=== PATIENT | female | born 1960 | race African-American/Black ===

== ENCOUNTER 2022-05-14 08:41 | Day surgery (SDC) | payer OTHER ==
[~2022-05-14] VITALS: Ht 157.5 cm; Wt 95.3 kg
[2022-05-14] MEDS ORDERED: OXYBUTYNIN CHLOR5 M1 PO (09:13)
[2022-05-14] MEDS ORDERED: BUSPAR5 M1 PO (09:14)
[2022-05-14] MEDS ORDERED: CYMBALTA20 MG PO (09:16)
[2022-05-14] MEDS ORDERED: DICLOFENAC SODI TOP (09:16)
[2022-05-14] MEDS ORDERED: ZOLPIDEM5 M1 PO (09:17)
[2022-05-14] MEDS ORDERED: FENOFIBRATE40 MG PO (09:17)
[2022-05-14] MEDS ORDERED: ATORVASTATIN CA10 MG PO (09:18)
[2022-05-14] MEDS ORDERED: METFORMIN500 M2 PO (09:19)
[2022-05-14] MEDS ORDERED: GLIMEPIRIDE2 MG PO (09:19)
[2022-05-14] MEDS ORDERED: PERCOCET 5/321 COMBO PO (09:21)
[2022-05-14] MEDS ORDERED: MELATONIN5 M3 PO (09:22)
[2022-05-14 11:19] VITALS: BP 168/95
== END 2022-05-14 11:00 | disposition home or self-care (01) ==
LOC: ORM 08:41
PROVIDERS: ATTEND Physical Medicine & Rehabilitation
DX: M47.816 Spondylosis without myelopathy or radiculopathy, lumbar region (principal); G89.4 Chronic pain syndrome; M25.511 Pain in right shoulder